=== PATIENT | male | born 1995 | race Caucasian/White ===

== ENCOUNTER 2020-10-18 10:55 | Emergency (ER) | payer OTHER, SELFPAY ==
--- NOTE | ~2020-10-18 | XR_ITS ---
EXAMINATION: XR ankle RT 2V EXAM DATE: 10/18/2020 11:22 INDICATION: Ankle injury, while hiking yesterday. TECHNIQUE: Frontal and lateral projections of the right ankle. There is no prior study for comparis on. FINDINGS: There are no acute right ankle fractures or dislocations identified. There is no subcutane ous gas. There is soft tissue swelling over the ankle laterally. There are no radiopaque foreign taylor dies. IMPRESSION: 1. XR ankle RT 2V exam without acute osseous findings. 2. Soft tissue swelling. 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
[2020-10-18 11:00] VITALS: BP 123/62; PULSE 91; RESP 14; O2SAT 99
--- NOTE | 2020-10-18 11:21 | ED.LOWEXIN ---
HPI - Extremity Injury (Lower) General Chief Complaint: Extremity Injury, Lower Stated Complaint: rolled R ankle Source: patient Mode of arrival: ambulatory Limitations: no limitations History of Present Illness HPI Narrative: this is a 25 year gentleman presents with right ankle pain and swelling with hematoma and bruising to the lateral aspect of his right ankle and pain and swelling in the right malleolus after he rolled his ankle yesterday. He rates his pain at about a 2/10 is comfortable while just sitting is painful with weight-bearing and relieved with rest. MD complaint: ankle injury Injury: Right: ankle ( bruising and swelling on the lateral malleolus of his right ankle) Type of Injury: inversion Place: home Severity: mild Severity scale (1-10): 2 Relieving factors: immobilization Exacerbating factors: movement Context: walking Associated symptoms: swelling and able to partially bear weight Related Data Home Medications Medication Instructions Recorded Confirmed No Home Medications 10/18/20 10/18/20 Allergies Allergy/AdvReac Type Severity Reaction Status Date / Time No Known Allergies Allergy Verified 10/18/20 11:05 Review of Systems Review of Systems: All systems reviewed & are unremarkable except as noted in HPI and below [facility] Past Medical History Medical History Patient denies medical problems Exam Const: General: no acute distress and alert Orientation/consciousness: patient oriented x3 HENMT: Head: normal to inspection Eyes: Conjunctivae: conjunctivae normal Pupils: Equal, round and reactive pupils present Direct Ophthalmoscopy: no photophobia Neck: Neck: normal visual inspection Chest: Chest palpation & inspection: normal inspection of the chest Resp: Effort & Inspection: normal respiratory effort Cardio: Rate: regular rate Rhythm: regular rhythm GI: GI Palp: Yes Soft to palpation Skin: Other: bruising in the lateral aspect of his right ankle with swelling and discoloration with decreased range of motion secondary to swelling and pain Extrem: Other: swelling and tenderness with palpation and movement in the lateral malleolus of his right ankle Psych: Appearance: grossly normal Mental Status: mental status grossly normal Affect: normal affect Attitude: cooperative Course Course Emergency Course: patient comfortable while at rest rates his pain at a 2/10 declined any pain medicine at this time, x-rays reviewed with patient which showed no acute fractures, will place an Guero wrap been advised to take naproxen twice daily keep elevated and can apply ice to affected ankle. Critical Care Time Critical Care Time Critical Care Time: No Discharge Plan Discharge Clinical Impression: Ankle sprain and strain Patient Disposition: Home, Self-Care Condition: Stable Instructions: Antibiotic Form, Ankle Sprain (ED) Additional Instructions: Use Guero wrap, can use naproxen 500 mg twice daily with meals, can elevate while at rest use ice to affected ankle and follow-up with primary care physician in approximately 2 weeks if symptoms persist or worsen. Prescriptions: No Action No Home Medications RF: 0 Follow-up/Referrals: UNKNOWN,DOCTOR [Primary Care Provider] - Time of Disposition: 11:30
[2020-10-18 11:40] VITALS: RESP 15
== END 2020-10-18 11:40 | disposition home or self-care (01) ==
PROVIDERS: Emergency Provider Emergency Medicine
DX: S93.401A Sprain of unspecified ligament of right ankle, initial encounter (principal)
CPT/HCPCS: 73600; 99282; 99283